=== PATIENT | male | born 1955 | race Two or more races ===

== ENCOUNTER → 2017-04-09 | Outpatient (CLI) | payer BC ==
[2017-04-09 09:25] LABS: ALBUMIN 4.1 gm/dL (3.5-5.0); ANION GAP 9.5 (10.0-19.0); CREATININE 1.4 mg/dL (0.6-1.3); POTASSIUM 3.5 mMol/L (3.7-5.1); TOTAL BILIRUBIN 1.5 mg/dL (0.0-1.5); TOTAL PROTEIN 7.7 g/dL (6.0-8.4)
== END ==
LOC: LNHI 08:55
PROVIDERS: Internal Medicine Interventional Cardiology
DX: I35.1 Nonrheumatic aortic (valve) insufficiency (principal); I10 Essential (primary) hypertension; E78.4 Other hyperlipidemia